=== PATIENT | male | born 1970 | race Caucasian/White ===

== ENCOUNTER → 2016-07-31 | Outpatient (CLI) | payer BC ==
--- NOTE | 2016-08-01 15:26 | SLEEP ---
DATE OF STUDY: 07/31/2016 ATTENDING PHYSICIAN: Dr. Minor Godfrey. The patient is 46 years old who Weighs 325 pounds with the BMI of 44. The patient's Aurora score was 9. Sleep study was performed at [facility]. This was a split night study. During the night study, the patient spent 457 minutes in bed and slept for 381 minutes with a sleep efficiency of 83%. Sleep latency was 12 minutes with a REM latency of 233 minutes. Overall, sleep architecture showed normal stage I and stage II sleep, normal slow wave and normal REM sleep. During the initial diagnostic portion of the study, the patient slept for 132 minutes. During this time, there were 28 obstructive apneas, no mixed or central apneas. There were 142 hypopneas. The patient's apnea hypopnea index was 77 per hour. The patient did not have supine sleep during the diagnostic portion or REM sleep. Review of nocturnal oximetry study revealed a mean oxygen saturation of 98% with the lowest of 81%, 20% of time oxygen saturation remained between 80% and 89%. EKG monitoring revealed average heart rate was 78 beats per minute. No sustained arrhythmias were observed. PACs were seen occasionally. PLMS were seen at an index of 60 per hour and 2 per hour caused EEG arousals. The patient met the criteria for CPAP initiation. It was started at 9 cm water as the patient was unable to tolerate lower pressure. At the final pressure of 14 cm of water. The patient spent 128 minutes. The patient had supine as well as the lateral REM sleep. The patient's AHI was only 1 per hour. Oxygen saturation remained about 91%. The patient used a medium size full face mask. IMPRESSION: 1. Severe sleep apnea-hypopnea syndrome at an AHI of 77 per hour. 2. Nocturnal hypoxia secondary to obstructive sleep apnea, but resolved with CPAP. 3. Severe PLMS at an index of 60 per hour and 2 per hour caused EEG arousals. RECOMMENDATIONS: 1. CPAP at 14 cm of water completely eliminated the patient's sleep apnea and should be used on a nightly basis. 2. Follow up in 4-6 weeks to assess compliance with CPAP and to document clinical improvement. 3. Weight loss is strongly advised. 4. Avoid MASTER [employer]OR[employer]CLE TECH[employer]ICIAN depressants. 5. Caution regarding driving until symptoms of sleep apnea resolve with the use of CPAP. 6. PLMS can be treated with dopaminergic agonist agents if patient is clinically symptomatic. The patient should also be further evaluated for symptoms of restless legs during the day. ИРИНА VAIL MD DR: NERY/abbi JOB#: [id number] / [id number] MINOR Linton MD
== END | disposition home or self-care (01) ==
LOC: RT 18:16
PROVIDERS: ATTEND Family Medicine
DX: G47.33 Obstructive sleep apnea (adult) (pediatric) (principal)
CPT/HCPCS: 95810

== ENCOUNTER → 2016-09-11 | Outpatient (CLI) | payer BC ==
--- NOTE | 2016-09-11 19:15 | CARD ---
APPROVED REPORT EXAM: Two-dimensional and M-mode echocardiogram with Doppler and color Doppler. Other Information Quality : Average Rhythm : NSR INDICATION Dyspnea Peripheral Edema 2D DIMENSIONS RVDd3.6 (2.9-3.5cm)Left Atrium(2D)3.7 (1.6-4.0cm) IVSd1.1 (0.7-1.1cm)Aortic Root(2D)3.1 (2.0-3.7cm) LVDd6.1 (3.9-5.9cm)LVOT Diameter2.1 (1.8-2.4cm) PWd1.1 (0.7-1.1cm)LVDs3.6 (2.5-4.0cm) FS (%) 31.1 %SV132.8 ml LVEF(%)61.0 (>50%) Aortic Valve AoV Peak Zan.108.4cm/sAoV VTI21.8cm AO Peak GR.4.7mmHgLVOT Peak Zan.98.2cm/s LVOT VTI 21.96cmAO Mean GR.2mmHg JOHN (VMAX)3.81un8CGR (VTI)3.45cm2 Mitral Valve MV E Riufwkrs44.8cm/sMV DECEL NALA401hs MV A Viwfytxq43.0cm/sMV E Mean Gr.2mmHg MV NNS12syZ/A Ratio1.1 MV A Pbokkfsp669jfLNH (PHT)2.88cm2 TDI E/Lateral E'8.3E/Medial E'7.7 Pulmonary Valve PV Peak Estsjpbk826.1cm/sPV Peak Grad.5mmHg RVOT VTI17.4cm Tricuspid Valve TR P. Wxrplbjg740lg/sRAP WXBIOBZU7kdOi TR Peak Gr.26vxAqLQCG94cpMr LEFT VENTRICLE The Left Ventricle is borderline dilated. There is normal left ventricular wall thickness. Left ventr icle systolic function is normal. The Ejection Fraction is 61%. There is normal LV segmental wall mot ion. The left ventricular diastolic function and filling is normal for age. RIGHT VENTRICLE The right ventricle is normal size. The right ventricular systolic function is normal. ATRIA The left atrium size is normal. The right atrium size is normal. The interatrial septum is intact wit h no evidence for an atrial septal defect or patent foramen ovale as noted on 2-D or Doppler imaging. AORTIC VALVE The aortic valve is normal in structure and function. The aortic valve is trileaflet. Doppler and Col or Flow revealed no significant aortic regurgitation. There is no significant aortic valvular stenosi s. MITRAL VALVE The mitral valve is normal in structure There is no mitral valve stenosis. Doppler and Color Flow rev ealed trace to mild mitral regurgitation. TRICUSPID VALVE The tricuspid valve is normal in structure and function. Doppler and Color Flow revealed trace tricus pid regurgitation. The PA pressure was estimated at 14 mmHg. There is no tricuspid valve stenosis. PULMONIC VALVE The pulmonic valve is not well visualized. Doppler and Color Flow revealed no pulmonic valvular regur gitation. There is no pulmonic valvular stenosis. GREAT VESSELS The aortic root is normal in size. Pulmonary vein flow not well visualized. The IVC is normal in size and collapses >50% with inspiration. PERICARDIAL EFFUSION There is no evidence of significant pericardial effusion. Critical Notification Critical Value: No <Conclusion> The Left Ventricle is borderline dilated. Left ventricle systolic function is normal. The Ejection Fraction is 61%. The left atrium size is normal. The right atrium size is normal. The aortic valve is normal in structure and function. The aortic valve is trileaflet. Doppler and Color Flow revealed trace to mild mitral regurgitation. Doppler and Color Flow revealed trace tricuspid regurgitation. The PA pressure was estimated at 14 mmHg. The pulmonic valve is not well visualized. There is no evidence of significant pericardial effusion.
== END | disposition home or self-care (01) ==
LOC: ECHO 09:50
PROVIDERS: ATTEND Internal Medicine Cardiovascular Disease
DX: I08.1 Rheumatic disorders of both mitral and tricuspid valves (principal); R06.00 Dyspnea, unspecified; R60.0 Localized edema; R53.81 Other malaise; R53.83 Other fatigue
CPT/HCPCS: 93306

== ENCOUNTER → 2018-10-20 | Outpatient (CLI) | payer BC ==
[~2018-10-20] MED LIST: AMLO10TA8 PO; ASPI-630 PO; ATOR40TA59 PO; INSU200I4 SQ; Pantoprazole PO; SOTA80TA20 PO
--- NOTE | 2018-10-21 09:46 | CARD ---
MR#: [id number] Date of Study: 10/20/2018 Ordering Physician: ARACELI STERN, Referring Physician: ARACELI STERN, Tech: Mitali Mejia CATHY APPROVED REPORT EXAM: Two-dimensional and M-mode echocardiogram with Doppler and color Doppler. Other Information Quality : AverageHR: 72bpm Rhythm : NSR INDICATION Atrial Fibrillation 2D DIMENSIONS RVDd3.5 (2.9-3.5cm)Left Atrium(2D)4.0 (1.6-4.0cm) IVSd1.3 (0.7-1.1cm)Aortic Root(2D)3.3 (2.0-3.7cm) LVDd6.0 (3.9-5.9cm)LVOT Diameter2.3 (1.8-2.4cm) PWd1.0 (0.7-1.1cm)LVDs4.2 (2.5-4.0cm) FS (%) 29.3 %SV98.6 ml LVEF(%)55.3 (>50%) M-Mode DIMENSIONS Left Atrium(MM)3.71 (2.5-4.0cm)Aortic Root3.41 (2.2-3.7cm) Aortic Valve AoV Peak Zan.152.8cm/sAoV VTI33.4cm AO Peak GR.9.3mmHgLVOT Peak Zan.119.8cm/s AO Mean GR.5mmHgAVA (VMAX)3.31cm2 JOHN (VTI)3.30cm2 Mitral Valve MV E Ftexqukr77.2cm/sMV DECEL SAEW067tv MV A Tivwydzi04.9cm/sE/A Ratio1.0 Pulmonary Valve PV Peak Rwlztieu048.3cm/s Tricuspid Valve TR P. Gnxtcilu737id/sRAP PCLAIHUK1voMd TR Peak Gr.37bcDuAJPZ95qnVj Pulmonary Vein S1 Jumjlxzh06.9cm/sD2 Rnlbxyyf11.1cm/s PVa ztppvjme93kxlv LEFT VENTRICLE The Left Ventricle is borderline dilated. There is normal left ventricular wall thickness. The left v entricular systolic function is normal and the ejection fraction is within normal range. The Ejection Fraction is 55-60%. There is normal LV segmental wall motion. Transmitral Doppler flow pattern is Gr katelin I-abnormal relaxation pattern. RIGHT VENTRICLE The right ventricle is normal size. There is normal right ventricular wall thickness. The right ventr icular systolic function is normal. ATRIA The left atrium is borderline dilated. The right atrium size is normal. The atrial septum is aneurysm al. AORTIC VALVE The aortic valve is normal in structure and function. The aortic valve is trileaflet. Doppler and Col or Flow revealed no significant aortic regurgitation. There is no significant aortic valvular stenosi s. There is no aortic valvular vegetation. MITRAL VALVE The mitral valve is normal in structure and function. There is no evidence of mitral valve prolapse. There is no mitral valve stenosis. Doppler and Color-flow revealed trace mitral regurgitation. TRICUSPID VALVE The tricuspid valve is normal in structure and function. Doppler and Color Flow revealed trace tricus pid regurgitation. The PA pressure was estimated at 25 mmHg. There is no tricuspid valve prolapse or vegetation. There is no tricuspid valve stenosis. PULMONIC VALVE The pulmonic valve is not well visualized. GREAT VESSELS The aortic root is normal in size. The ascending aorta is normal in size. The IVC is normal in size a nd collapses >50% with inspiration. PERICARDIAL EFFUSION There is no evidence of significant pericardial effusion. Critical Notification Critical Value: No <Conclusion> The Left Ventricle is borderline dilated. The left ventricular systolic function is normal and the ejection fraction is within normal range. The Ejection Fraction is 55-60%. There is no significant aortic valvular stenosis. Doppler and Color Flow revealed no significant aortic regurgitation. Doppler and Color-flow revealed trace mitral regurgitation. Doppler and Color Flow revealed trace tricuspid regurgitation. The PA pressure was estimated at 25 mmHg. Signed by : Darinel Ochoa MD Electronically Approved : 10/20/2018 17:04:00
== END | disposition home or self-care (01) ==
LOC: ECHO 13:51
PROVIDERS: ATTEND Internal Medicine Cardiovascular Disease
DX: I48.0 Paroxysmal atrial fibrillation (principal)
CPT/HCPCS: 93306

== ENCOUNTER 2018-11-07 19:00 | Inpatient (IN) | payer BC ==
[~2018-11-07] VITALS: Ht 182.9 cm; Wt 137.7 kg
[2018-11-07 19:44] LABS: BASO # 0.1 x10^3/uL (0.0-0.2); BASO % 1 % (0-3); EOS # 0.2 x10^3/uL (0.0-0.7); EOS % 3 % (0-3); HEMATOCRIT 37.9 % (39.0-53.0); HEMOGLOBIN 13.3 g/dL (13.0-17.5); LYMPH # 1.9 x10^3/uL (1.0-4.8); LYMPH % 27 % (24-48); MEAN CORPUSCULAR HEMOGLOBIN 31 pg (25-35); MEAN CORPUSCULAR HGB CONC 35 g/dL (31-37); MEAN CORPUSCULAR VOLUME 87 fL (79-100); MONO # 0.8 x10^3/uL (0.0-1.1); MONO % 12 % (0-9); NEUT # 4.2 x10^3uL (1.8-7.7); NEUT % 59 % (31-73); PLATELET COUNT 204 x10^3/uL (140-400); RED BLOOD COUNT 4.36 x10^6/uL (4.30-5.70); RED CELL DISTRIBUTION WIDTH 13.5 % (11.5-14.5); WHITE BLOOD COUNT 7.1 x10^3/uL (4.0-11.0)
[2018-11-07 19:59] LABS: CALCIUM 9.5 mg/dL (8.5-10.1); CREATININE 2.5 mg/dL (0.7-1.3); GFR 27.5; POTASSIUM 3.5 mmol/L (3.5-5.1)
[2018-11-07] MEDS ORDERED: IV NORMAL SALINE 1000ML BAG 1,000 ML IV ONE (20:00)
[2018-11-07 20:05] LABS: ALBUMIN 4.5 g/dL (3.4-5.0); ALBUMIN/GLOBULIN RATIO 1.5 (1.0-1.7); TOTAL BILIRUBIN 1.1 mg/dL (0.2-1.0); TOTAL PROTEIN 7.6 g/dL (6.4-8.2)
--- NOTE | 2018-11-07 20:10 | PHYS DOC ---
Past Medical History Past Medical History: A-Fib, Diabetes-Type II, GERD, Hypertension Past Surgical History: Other Additional Past Surgical Histo: Cardioversion Additional Information: non smoker Alcohol Use: Rarely Drug Use: None Adult General Chief Complaint Chief Complaint: ABNORMAL LABS HPI HPI Patient is a 48 year old male who was called by his doctor to come to the ER because of abnormal labs. The patient states that he has been recently getting a workup from Dr. Degroot, the machine fixer who ran labs and then got a call from [facility] and Dr. Deluna due to possible abnormal labs relating to her renal issues. Patient is originally getting a workup because he has been feeling short of breath, bloated, loss of appetite over the last several weeks. He started new diet 3 weeks ago and after the first couple days has not noted the diet due to the loss of appetite. Rates his pain at this moment as 0 out of 10. Review of Systems Review of Systems Constitutional: Denies fever or chills but reports loss of appetite. Eyes: Denies change in visual acuity, redness, or eye pain [] HENT: Denies nasal congestion or sore throat [] Respiratory: Denies cough but reports shortness of breath [] Cardiovascular: Reports some midsternal chest pressure. GI: Denies abdominal pain, nausea, vomiting, bloody stools or diarrhea [] : Denies dysuria or hematuria [] Musculoskeletal: Denies back pain or joint pain [] Integument: Denies rash or skin lesions [] Neurologic: Denies headache, focal weakness or sensory changes [] Endocrine: Denies polyuria or polydipsia [] Complete systems were reviewed and found to be within normal limits, except as documented in this note. Current Medications Current Medications Current Medications Medications (Trade) Dose Ordered Sig/Magdy Start Time Stop Time Status Last Admin Dose Admin Sodium Chloride 1,000 ml @ 100 mls/hr Q10H 11/07/18 21:04 11/08/18 21:03 11/07/18 23:29 100 MLS/HR Allergies Allergies Allergies Coded Allergies Type Severity Reaction Last Updated Verified amoxicillin Allergy Intermediate Rash 11/07/18 No Physical Exam Physical Exam Constitutional: Well developed, well nourished, no acute distress, non-toxic appearance. [] HENT: Normocephalic, atraumatic, bilateral external ears normal, oropharynx moist, no oral exudates, nose normal. [] Eyes: PERRLA, EOMI, conjunctiva normal, no discharge. [] Neck: Normal range of motion, no tenderness, supple, no stridor. [] Cardiovascular:Heart rate regular rhythm, no murmur [] Lungs & Thorax: Bilateral breath sounds clear to auscultation [] Abdomen: Bowel sounds normal, soft, no tenderness, no masses, no pulsatile masses. [] Skin: Warm, dry, no erythema, no rash. [] Back: No tenderness, no CVA tenderness. [] Extremities: No tenderness, no cyanosis, no clubbing, ROM intact, no edema. [] Neurologic: Alert and oriented X 3, normal motor function, normal sensory function, no focal deficits noted. [] Psychologic: Affect normal, judgement normal, mood normal. [] Current Patient Data Vital Signs Vital Signs Date Time Temp Pulse Resp B/P (MAP) Pulse Ox O2 Delivery O2 Flow Rate FiO2 11/07/18 19:00 97.8 55 18 127/79 (95) 97 Room Air 97.8 Lab Values Laboratory Tests Test 11/07/18 19:22 White Blood Count 7.1 x10^3/uL (4.0-11.0) Red Blood Count 4.36 x10^6/uL (4.30-5.70) Hemoglobin 13.3 g/dL (13.0-17.5) Hematocrit 37.9 % (39.0-53.0) L Mean Corpuscular Volume 87 fL (79-100) Mean Corpuscular Hemoglobin 31 pg (25-35) Mean Corpuscular Hemoglobin Concent 35 g/dL (31-37) Red Cell Distribution Width 13.5 % (11.5-14.5) Platelet Count 204 x10^3/uL (140-400) Neutrophils (%) (Auto) 59 % (31-73) Lymphocytes (%) (Auto) 27 % (24-48) Monocytes (%) (Auto) 12 % (0-9) H Eosinophils (%) (Auto) 3 % (0-3) Basophils (%) (Auto) 1 % (0-3) Neutrophils # (Auto) 4.2 x10^3uL (1.8-7.7) Lymphocytes # (Auto) 1.9 x10^3/uL (1.0-4.8) Monocytes # (Auto) 0.8 x10^3/uL (0.0-1.1) Eosinophils # (Auto) 0.2 x10^3/uL (0.0-0.7) Basophils # (Auto) 0.1 x10^3/uL (0.0-0.2) Sodium Level 144 mmol/L (136-145) Potassium Level 3.5 mmol/L (3.5-5.1) Chloride Level 104 mmol/L (98-107) Carbon Dioxide Level 27 mmol/L (21-32) Anion Gap 13 (6-14) Blood Urea Nitrogen 47 mg/dL (8-26) H Creatinine 2.5 mg/dL (0.7-1.3) H Estimated GFR (Cockcroft-Gault) 27.5 BUN/Creatinine Ratio 19 (6-20) Glucose Level 118 mg/dL (70-99) H Calcium Level 9.5 mg/dL (8.5-10.1) Total Bilirubin 1.1 mg/dL (0.2-1.0) H Aspartate Amino Transferase (AST) 23 U/L (15-37) Alanine Aminotransferase (ALT) 28 U/L (16-63) Alkaline Phosphatase 94 U/L (46-116) Troponin I Quantitative < 0.017 ng/mL (0.000-0.055) KU-Obx-F-Type Natriuretic Peptide 124 pg/mL (0-124) Total Protein 7.6 g/dL (6.4-8.2) Albumin 4.5 g/dL (3.4-5.0) Albumin/Globulin Ratio 1.5 (1.0-1.7) Lipase 355 U/L (73-393) Laboratory Tests 11/07/18 19:22 Laboratory Tests 11/07/18 19:22 EKG EKG EKG interpreted by Dr. Rothman Sinus Rhythm with rate of 74. In Trigeminy. No STEMI.[] Radiology/Procedures Radiology/Procedures []PATIENT: MARÍA STINSONOUNT: [id number]#: [id number] : 1970 LOCATION: ER AGE: 48 SEX: M EXAM STATUS: PRE ER ORD. PHYSICIAN: YEMI AMADOR APRN REASON: shortness of breath, renal failure PROCEDURE: CHEST PA & LATERAL EXAM: Chest, 2 views. HISTORY: Shortness of breath. Renal failure. COMPARISON: None. FINDINGS: 2 views of the chest are obtained. There is suspected right infrahilar atelectasis. There is no consolidation, pleural effusion or pneumothorax. The heart is normal in size. IMPRESSION: Suspected right infrahilar atelectasis. Electronically signed by: Sasha Alexis MD (11/07/2018 8:29 PM) [facility] Course & Med Decision Making Course & Med Decision Making Pertinent Labs and Imaging studies reviewed. (See chart for details) Will obtain labs, urine, ekg, and chest x-ray. Will also give fluids. Patient is agreeable. Labs show a creatinine of 2.5 and he is in СВЕТЛАНА. Will admit to [facility] and talked to Dr. Deluna who wants him at 100 mL/hr of NS. Dragon Disclaimer Dragon Disclaimer This electronic medical record was generated, in whole or in part, using a voice recognition dictation system. Departure Departure Impression: Primary Impression: СВЕТЛАНА (acute kidney injury) Disposition: ADMITTED INPATIENT Admitting Physician: AMANDO Condition: STABLE Referrals: MARTITA BAR MD (PCP) YEMI AMADOR APRN Nov 07, 2018 20:10
--- NOTE | 2018-11-07 20:32 | RAD ---
EXAM: Chest, 2 views. HISTORY: Shortness of breath. Renal failure. COMPARISON: None. FINDINGS: 2 views of the chest are obtained. There is suspected right infrahilar atelectasis. There is no consolidation, pleural effusion or pneumothorax. The heart is normal in size. IMPRESSION: Suspected right infrahilar atelectasis. Electronically signed by: Sasha Alexis MD (11/07/2018 8:29 PM) [facility]
[2018-11-07] MEDS ORDERED: MORPHINE SULFATE 2 MG/ML VIAL. IV PRN (21:15)
[2018-11-07] MEDS ORDERED: ONDANSETRON PF 4 MG/2 ML VIAL. IV PRN (21:15)
[2018-11-07 22:33] LABS: BILIRUBIN,URINE NEGATIVE (NEG); CLARITY,URINE CLEAR; COLOR,URINE YELLOW; NITRITE,URINE NEGATIVE (NEG); PH,URINE 5.5; PROTEIN,URINE NEGATIVE (NEG-TRACE)
[2018-11-07 22:42] LABS: BACTERIA,URINE 0 /HPF (0-FEW); RBC,URINE 0 /HPF (0-2); WBC,URINE 0 /HPF (0-4)
[2018-11-07 23:16] VITALS: BP 141/79
[2018-11-07] MEDS: IV NORMAL SALINE 1000ML BAG 1,000 ML IV SCH (23:29)
[2018-11-08] MEDS ORDERED: ONDANSETRON PF 4 MG/2 ML VIAL. IV PRN (00:45)
[2018-11-08] MEDS ORDERED: diphenhydrAMINE HCL 25 MG CAPSULE PO PRN (00:45)
--- NOTE | 2018-11-08 00:50 | NUR ---
The patient, MARÍA STINSON, 48 y/o, M admitted by JCARLOS FALL MD, was given written information regarding hospital policies, unit procedures and contact persons. Pt unable to provide updated medication list at admission time- Jagruti will bring in AM 6/8 per pt and .
[2018-11-08 03:32] VITALS: BP_SYST 123
[2018-11-08] MEDS ORDERED: DEXTROSE 50% 25 GM / 50ML DISP.SYRIN. IV PRN ×2 (06:45→09:00)
[2018-11-08] MEDS: IV NORMAL SALINE 1000ML BAG 1,000 ML IV SCH ×2 (07:04→17:04)
[2018-11-08 07:52] VITALS: BP 127/65
[2018-11-08] MEDS ORDERED: LOSARTAN POTASSIUM 50 MG TABLET. PO SCH (09:00)
[2018-11-08] MEDS ORDERED: MULTIVITAMIN with MINERAL TABLET. PO SCH (09:00)
[2018-11-08] MEDS ORDERED: metFORMIN 500 MG TABLET PO SCH (09:00)
[2018-11-08] MEDS: CETIRIZINE HCL 10 MG TABLET. PO SCH (10:19)
[2018-11-08] MEDS: amLODIPine BESYLATE 10 MG TABLET PO SCH (10:19)
[2018-11-08] MEDS: PANTOPRAZOLE 40 MG TABLET.DR. PO SCH (10:20)
[2018-11-08] MEDS: ASPIRIN CHEWABLE 81 MG TABLET. PO SCH (10:20)
[2018-11-08] MEDS: SOTALOL 80 MG TABLET. PO SCH (10:22)
[2018-11-08 11:00] VITALS: BP 152/89
[2018-11-08 11:18] LABS: CALCIUM 8.9 mg/dL (8.5-10.1); CREATININE 1.7 mg/dL (0.7-1.3); GFR 42.9; POTASSIUM 3.4 mmol/L (3.5-5.1)
[2018-11-08] MEDS: INSULIN LISPRO 300 UNITS/3 ML INSULN.PEN. SQ SCH ×2 (12:00→17:00)
--- NOTE | 2018-11-08 13:10 | PDOC1 ---
History and Physical Date of Admission Date of Admission DATE: 11/08/18 TIME: 13:06 Identification/Chief Complaint Chief Complaint sent by renal bec of abn labs Source Source: Caregiver, Chart review, Patient History of Present Illness History of Present Illness A pleasant 48-year-old obese white male BMI 42, being worked up by Dr. Degroot for A. fib, bigeminy, trigeminy and is actually planned for ablation sometime next week. Basic labs showed a creatinine that was 3+ per , referred to renal. Renal has seen as OP and ordered some labs and advised to come to the ER because of abnormal labs At Emergency room, creatinine is 2.5 with a GFR 27.5. Patient does have history of hypertension, diabetes but are rather controlled with an A1c 6.6. He is on metformin and ARB at home. He did take maybe Celebrex for good 1 month, some 2 months ago for plantar fasciitis. Renal consulted, IV fluids started. Good urine output, PVR is minimal Past Medical History Cardiovascular: AFIB, HTN Endocrine: Diabetes Past Surgical History Past Surgical History: No pertinent history Family History Family History: Hypertension Social History Smoke: No ALCOHOL: none Drugs: None Current Medications Current Medications Current Medications Sodium Chloride 1,000 ml @ 1,000 mls/hr 1X ONCE IV Last administered on 11/07/18at 20:05; Start 11/07/18 at 20:00; Stop 11/07/18 at 20:59; Status DC Ondansetron HCl (Zofran) 4 mg PRN Q8HRS PRN IV NAUSEA/VOMITING; Start 11/07/18 at 21:15; Stop 11/08/18 at 00:41; Status DC Morphine Sulfate (Morphine Sulfate) 2 mg PRN Q2HR PRN IV PAIN; Start 11/07/18 at 21:15; Stop 11/08/18 at 21:14 Sodium Chloride 1,000 ml @ 100 mls/hr Q10H IV Last administered on 11/08/18at 07:04; Start 11/07/18 at 21:04; Stop 11/08/18 at 21:03 Ondansetron HCl (Zofran) 4 mg PRN Q6HRS PRN IV NAUSEA/VOMITING 1ST CHOICE; Start 11/08/18 at 00:45 Diphenhydramine HCl (Benadryl) 25 mg PRN QHS PRN PO INSOMNIA; Start 11/08/18 at 00:45 Dextrose (Dextrose 50%-Water Syringe) 12.5 gm PRN Q15MIN PRN IV SEE COMMENTS; Start 11/08/18 at 06:45; Stop 11/08/18 at 09:46; Status DC Metformin HCl (Glucophage) 500 mg DAILY08 PO ; Start 11/08/18 at 09:00; Stop 11/08/18 at 09:00; Status DC Amlodipine Besylate (Norvasc) 10 mg DAILY PO Last administered on 11/08/18at 10:19; Start 11/08/18 at 09:00 Sotalol HCl (Betapace) 120 mg DAILY PO Last administered on 11/08/18at 10:22; Start 11/08/18 at 09:00 Losartan Potassium (Cozaar) 100 mg DAILY PO ; Start 11/08/18 at 09:00; Stop 11/08/18 at 09:00; Status DC Atorvastatin Calcium (Lipitor) 40 mg QHS PO ; Start 11/08/18 at 21:00 Multivitamins (Thera M Plus) 1 tab DAILY PO Last administered on 11/08/18 10:19; Start 11/08/18 at 09:00 Aspirin (Children'S Aspirin) 81 mg DAILYWBKFT PO Last administered on 11/08/18 10:20; Start 11/08/18 at 09:00 Insulin Human Lispro (HumaLOG) 0-9 UNITS TIDWMEALS SQ ; Start 11/08/18 at 12:00 Dextrose (Dextrose 50%-Water Syringe) 12.5 gm PRN Q15MIN PRN IV SEE COMMENTS; Start 11/08/18 at 09:00 Pantoprazole Sodium (Protonix) 40 mg DAILYAC PO Last administered on 11/08/18 10:20; Start 11/08/18 at 11:00 Cetirizine HCl (ZyrTEC) 10 mg DAILY PO Last administered on 11/08/18 10:19; Start 11/08/18 at 11:00 Allergies Allergies: Coded Allergies: amoxicillin (Unverified Allergy, Intermediate, Rash, 11/07/18) ROS Review of System Nausea fatigue, malaise, the rest of ROS 14 point negative, positive for bloatedness Physical Exam General: Alert, Oriented X3, Cooperative, No acute distress HEENT: Atraumatic, PERRLA, EOMI Lungs: Clear to auscultation, Normal air movement Heart: S1S2, RRR, no thrills, no rubs, no gallops, no murmurs Cardiovascular: S1, S2 Abdomen: Normal bowel sounds, Soft, No tenderness, No hepatosplenomegaly, No masses Male Genitals Exam: normal genitalia, normal prostate Rectal Exam: not examined PELVIC: Nml ext genitalia Extremities: No clubbing, No cyanosis, No edema, Normal pulses, No tenderness/swelling Skin: No rashes, No breakdown, No significant lesion Neuro: Normal gait, Normal speech, Strength at 5/5 X4 ext, Normal tone, Sensation intact, Cranial nerves 3-12 NL, Reflexes 2+ Psych/Mental Status: Mental status NL, Mood NL Vitals Vitals Vital Signs Date Time Temp Pulse Resp B/P (MAP) Pulse Ox O2 Delivery O2 Flow Rate FiO2 11/08/18 11:00 97.3 54 20 152/89 (110) 97 Room Air 97.3 Labs Labs Laboratory Tests Test 11/07/18 19:22 11/07/18 22:25 11/08/18 07:37 11/08/18 10:50 White Blood Count 7.1 x10^3/uL (4.0-11.0) Red Blood Count 4.36 x10^6/uL (4.30-5.70) Hemoglobin 13.3 g/dL (13.0-17.5) Hematocrit 37.9 % (39.0-53.0) Mean Corpuscular Volume 87 fL (79-100) Mean Corpuscular Hemoglobin 31 pg (25-35) Mean Corpuscular Hemoglobin Concent 35 g/dL (31-37) Red Cell Distribution Width 13.5 % (11.5-14.5) Platelet Count 204 x10^3/uL (140-400) Neutrophils (%) (Auto) 59 % (31-73) Lymphocytes (%) (Auto) 27 % (24-48) Monocytes (%) (Auto) 12 % (0-9) Eosinophils (%) (Auto) 3 % (0-3) Basophils (%) (Auto) 1 % (0-3) Neutrophils # (Auto) 4.2 x10^3uL (1.8-7.7) Lymphocytes # (Auto) 1.9 x10^3/uL (1.0-4.8) Monocytes # (Auto) 0.8 x10^3/uL (0.0-1.1) Eosinophils # (Auto) 0.2 x10^3/uL (0.0-0.7) Basophils # (Auto) 0.1 x10^3/uL (0.0-0.2) Sodium Level 144 mmol/L (136-145) 143 mmol/L (136-145) Potassium Level 3.5 mmol/L (3.5-5.1) 3.4 mmol/L (3.5-5.1) Chloride Level 104 mmol/L (98-107) 106 mmol/L (98-107) Carbon Dioxide Level 27 mmol/L (21-32) 27 mmol/L (21-32) Anion Gap 13 (6-14) 10 (6-14) Blood Urea Nitrogen 47 mg/dL (8-26) 34 mg/dL (8-26) Creatinine 2.5 mg/dL (0.7-1.3) 1.7 mg/dL (0.7-1.3) Estimated GFR (Cockcroft-Gault) 27.5 42.9 BUN/Creatinine Ratio 19 (6-20) Glucose Level 118 mg/dL (70-99) 150 mg/dL (70-99) Calcium Level 9.5 mg/dL (8.5-10.1) 8.9 mg/dL (8.5-10.1) Total Bilirubin 1.1 mg/dL (0.2-1.0) Aspartate Amino Transf (AST/SGOT) 23 U/L (15-37) Alanine Aminotransferase (ALT/SGPT) 28 U/L (16-63) Alkaline Phosphatase 94 U/L (46-116) Troponin I Quantitative < 0.017 ng/mL (0.000-0.055) EO-Fqi-M-Type Natriuretic Peptide 124 pg/mL (0-124) Total Protein 7.6 g/dL (6.4-8.2) Albumin 4.5 g/dL (3.4-5.0) Albumin/Globulin Ratio 1.5 (1.0-1.7) Lipase 355 U/L (73-393) Urine Collection Type Unknown Urine Color Yellow Urine Clarity Clear Urine pH 5.5 Urine Specific [place] 1.015 Urine Protein Negative mg/dL (NEG-TRACE) Urine Glucose (UA) Negative mg/dL (NEG) Urine Ketones (Stick) Negative mg/dL (NEG) Urine Blood Negative (NEG) Urine Nitrite Negative (NEG) Urine Bilirubin Negative (NEG) Urine Urobilinogen Dipstick 1.0 mg/dL (0.2 mg/dL) Urine Leukocyte Esterase Negative (NEG) Urine RBC 0 /HPF (0-2) Urine WBC 0 /HPF (0-4) Urine Bacteria 0 /HPF (0-FEW) Glucose (Fingerstick) 103 mg/dL (70-99) Test 11/08/18 11:15 Glucose (Fingerstick) 126 mg/dL (70-99) Laboratory Tests Test 11/07/18 19:22 11/07/18 22:25 11/08/18 07:37 11/08/18 10:50 White Blood Count 7.1 x10^3/uL (4.0-11.0) Red Blood Count 4.36 x10^6/uL (4.30-5.70) Hemoglobin 13.3 g/dL (13.0-17.5) Hematocrit 37.9 % (39.0-53.0) Mean Corpuscular Volume 87 fL (79-100) Mean Corpuscular Hemoglobin 31 pg (25-35) Mean Corpuscular Hemoglobin Concent 35 g/dL (31-37) Red Cell Distribution Width 13.5 % (11.5-14.5) Platelet Count 204 x10^3/uL (140-400) Neutrophils (%) (Auto) 59 % (31-73) Lymphocytes (%) (Auto) 27 % (24-48) Monocytes (%) (Auto) 12 % (0-9) Eosinophils (%) (Auto) 3 % (0-3) Basophils (%) (Auto) 1 % (0-3) Neutrophils # (Auto) 4.2 x10^3uL (1.8-7.7) Lymphocytes # (Auto) 1.9 x10^3/uL (1.0-4.8) Monocytes # (Auto) 0.8 x10^3/uL (0.0-1.1) Eosinophils # (Auto) 0.2 x10^3/uL (0.0-0.7) Basophils # (Auto) 0.1 x10^3/uL (0.0-0.2) Sodium Level 144 mmol/L (136-145) 143 mmol/L (136-145) Potassium Level 3.5 mmol/L (3.5-5.1) 3.4 mmol/L (3.5-5.1) Chloride Level 104 mmol/L (98-107) 106 mmol/L (98-107) Carbon Dioxide Level 27 mmol/L (21-32) 27 mmol/L (21-32) Anion Gap 13 (6-14) 10 (6-14) Blood Urea Nitrogen 47 mg/dL (8-26) 34 mg/dL (8-26) Creatinine 2.5 mg/dL (0.7-1.3) 1.7 mg/dL (0.7-1.3) Estimated GFR (Cockcroft-Gault) 27.5 42.9 BUN/Creatinine Ratio 19 (6-20) Glucose Level 118 mg/dL (70-99) 150 mg/dL (70-99) Calcium Level 9.5 mg/dL (8.5-10.1) 8.9 mg/dL (8.5-10.1) Total Bilirubin 1.1 mg/dL (0.2-1.0) Aspartate Amino Transf (AST/SGOT) 23 U/L (15-37) Alanine Aminotransferase (ALT/SGPT) 28 U/L (16-63) Alkaline Phosphatase 94 U/L (46-116) Troponin I Quantitative < 0.017 ng/mL (0.000-0.055) JA-Dmw-T-Type Natriuretic Peptide 124 pg/mL (0-124) Total Protein 7.6 g/dL (6.4-8.2) Albumin 4.5 g/dL (3.4-5.0) Albumin/Globulin Ratio 1.5 (1.0-1.7) Lipase 355 U/L (73-393) Urine Collection Type Unknown Urine Color Yellow Urine Clarity Clear Urine pH 5.5 Urine Specific [place] 1.015 Urine Protein Negative mg/dL (NEG-TRACE) Urine Glucose (UA) Negative mg/dL (NEG) Urine Ketones (Stick) Negative mg/dL (NEG) Urine Blood Negative (NEG) Urine Nitrite Negative (NEG) Urine Bilirubin Negative (NEG) Urine Urobilinogen Dipstick 1.0 mg/dL (0.2 mg/dL) Urine Leukocyte Esterase Negative (NEG) Urine RBC 0 /HPF (0-2) Urine WBC 0 /HPF (0-4) Urine Bacteria 0 /HPF (0-FEW) Glucose (Fingerstick) 103 mg/dL (70-99) Test 11/08/18 11:15 Glucose (Fingerstick) 126 mg/dL (70-99) VTE Prophylaxis Ordered VTE Prophylaxis Devices: Yes VTE Pharmacological Prophylaxi: Yes Assessment/Plan Assessment/Plan СВЕТЛАНА 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 fib/bigemimny, trigeminy-plan for ablation sometime next week PLAN: Admit 2 Midnights, bladder scan protocol Renal ultrasound UA Avoid nephrotoxins Renal consult I have reconciled home meds except metformin and losartan Discussed with and patient, significant time education etc. had lots of questions we discussed about renal failure etc. prognosis treatment very pleasant family JCARLOS FALL MD Nov 08, 2018 13:10
--- NOTE | 2018-11-08 13:11 | PDOC2 ---
CONSULT Date of Consult Date of Consult DATE: 11/08/18 TIME: 13:03 Reason for Consult Reason for Consult: СВЕТЛАНА Referring Physician Referring Physician: JUAN DAVID Identification/Chief Complaint Chief Complaint ABNORMAL LABS Source Source: Chart review, Patient History of Present Illness Reason for Visit: THIS IS A 48 YR OLD WITH ABNORMAL OP LABS. WAS NOTED BY CARDIOLOGY TO HAVE A CR OF 3.5 OP BUT BASELINE CR OF ONLY ABOUT 0.8. OUR OFFICE CONTACTED THE PT WHEN HE REPORTED FEW DAYS OF POOR APPETITE AND OCC N/V. HAD ALSO NOTED DECREASE IN HIS URINATION. WE ASKED HIM TO COME TO THE ER WHERE HIS CR IS ABOUT 2.5. NO NEPHROTOXINS NOTED. NO HEMODYNAMIC INSTABILITY AND NO HX REPORTED. OF NOTE IS A NEW WT LOSS PLAN GIVE TO HIM BY [facility]. HE HAS BEEN FOLLOWING IT AND STATES THAT HE HAS LOST 18 LBS IN ONE WEEK. ALSO REPORTED EARLY SATIETY. JUST HAS NOT FELT LIKE EATING MUCH SINCE STARTING THE DIET RECENTLY. OTHER PROBLEMS HAVE INCLUDED SOB. STRESS TEST PER PT DONE JUST LAST WEEK WAS WNL. HE HAS AFIB AND IS A POTENTIAL CANDIDATE FOR ABLATION Past Medical History Past Medical History OBESITY Cardiovascular: AFIB, HTN GI: No pertinent hx, Constipation Renal/: Other (LESS UO) Endocrine: Diabetes Past Surgical History Past Surgical History NONE Family History Family History: Diabetes Social History No ALCOHOL: none Lives: with Family Current Medications Current Medications Current Medications Sodium Chloride 1,000 ml @ 1,000 mls/hr 1X ONCE IV Last administered on 11/07/18at 20:05; Start 11/07/18 at 20:00; Stop 11/07/18 at 20:59; Status DC Ondansetron HCl (Zofran) 4 mg PRN Q8HRS PRN IV NAUSEA/VOMITING; Start 11/07/18 at 21:15; Stop 11/08/18 at 00:41; Status DC Morphine Sulfate (Morphine Sulfate) 2 mg PRN Q2HR PRN IV PAIN; Start 11/07/18 at 21:15; Stop 11/08/18 at 21:14 Sodium Chloride 1,000 ml @ 100 mls/hr Q10H IV Last administered on 11/08/18at 07:04; Start 11/07/18 at 21:04; Stop 11/08/18 at 21:03 Ondansetron HCl (Zofran) 4 mg PRN Q6HRS PRN IV NAUSEA/VOMITING 1ST CHOICE; Start 11/08/18 at 00:45 Diphenhydramine HCl (Benadryl) 25 mg PRN QHS PRN PO INSOMNIA; Start 11/08/18 at 00:45 Dextrose (Dextrose 50%-Water Syringe) 12.5 gm PRN Q15MIN PRN IV SEE COMMENTS; Start 11/08/18 at 06:45; Stop 11/08/18 at 09:46; Status DC Metformin HCl (Glucophage) 500 mg DAILY08 PO ; Start 11/08/18 at 09:00; Stop 11/08/18 at 09:00; Status DC Amlodipine Besylate (Norvasc) 10 mg DAILY PO Last administered on 11/08/18at 10:19; Start 11/08/18 at 09:00 Sotalol HCl (Betapace) 120 mg DAILY PO Last administered on 11/08/18at 10:22; Start 11/08/18 at 09:00 Losartan Potassium (Cozaar) 100 mg DAILY PO ; Start 11/08/18 at 09:00; Stop 11/08/18 at 09:00; Status DC Atorvastatin Calcium (Lipitor) 40 mg QHS PO ; Start 11/08/18 at 21:00 Multivitamins (Thera M Plus) 1 tab DAILY PO Last administered on 11/08/18at 10:19; Start 11/08/18 at 09:00 Aspirin (Children'S Aspirin) 81 mg DAILYWBKFT PO Last administered on 11/08/18at 10:20; Start 11/08/18 at 09:00 Insulin Human Lispro (HumaLOG) 0-9 UNITS TIDWMEALS SQ ; Start 11/08/18 at 12:00 Dextrose (Dextrose 50%-Water Syringe) 12.5 gm PRN Q15MIN PRN IV SEE COMMENTS; Start 11/08/18 at 09:00 Pantoprazole Sodium (Protonix) 40 mg DAILYAC PO Last administered on 11/08/18at 10:20; Start 11/08/18 at 11:00 Cetirizine HCl (ZyrTEC) 10 mg DAILY PO Last administered on 11/08/18at 10:19; Start 11/08/18 at 11:00 Allergies Allergies: Coded Allergies: amoxicillin (Unverified Allergy, Intermediate, Rash, 11/07/18) ROS General: YES: Fatigue, Malaise Eyes: Yes Decreased vision ALLERGY AND IMMUNOLOGY: YES: Seasonal Allergies Respiratory: YES: Cough, Shortness of breath Cardiovascular: yes Chest Pain Gastrointestinal: Yes Nausea, Yes Vomiting, Yes Constipation Genitourinary: YES Other Musculoskeletal: Yes Muscular Weakness Neurological: Yes Weakness Skin: Yes Dry Skin Physical Exam General: Alert, Oriented X3, Cooperative, No acute distress HEENT: Atraumatic, PERRLA, EOMI Lungs: Clear to auscultation, Normal air movement Heart: Other (IRREGULAR) Abdomen: Normal bowel sounds, Soft Skin: No breakdown Neuro: Normal speech, Sensation intact Psych/Mental Status: Mental status NL, Mood NL MUSCULOSKELETAL: No joint tenderness, No deformity, No swelling Vitals VITALS Vital Signs Date Time Temp Pulse Resp B/P (MAP) Pulse Ox O2 Delivery O2 Flow Rate FiO2 11/08/18 11:00 97.3 54 20 152/89 (110) 97 Room Air 97.3 Labs Labs Laboratory Tests Test 11/07/18 19:22 11/07/18 22:25 11/08/18 07:37 11/08/18 10:50 White Blood Count 7.1 x10^3/uL (4.0-11.0) Red Blood Count 4.36 x10^6/uL (4.30-5.70) Hemoglobin 13.3 g/dL (13.0-17.5) Hematocrit 37.9 % (39.0-53.0) Mean Corpuscular Volume 87 fL (79-100) Mean Corpuscular Hemoglobin 31 pg (25-35) Mean Corpuscular Hemoglobin Concent 35 g/dL (31-37) Red Cell Distribution Width 13.5 % (11.5-14.5) Platelet Count 204 x10^3/uL (140-400) Neutrophils (%) (Auto) 59 % (31-73) Lymphocytes (%) (Auto) 27 % (24-48) Monocytes (%) (Auto) 12 % (0-9) Eosinophils (%) (Auto) 3 % (0-3) Basophils (%) (Auto) 1 % (0-3) Neutrophils # (Auto) 4.2 x10^3uL (1.8-7.7) Lymphocytes # (Auto) 1.9 x10^3/uL (1.0-4.8) Monocytes # (Auto) 0.8 x10^3/uL (0.0-1.1) Eosinophils # (Auto) 0.2 x10^3/uL (0.0-0.7) Basophils # (Auto) 0.1 x10^3/uL (0.0-0.2) Sodium Level 144 mmol/L (136-145) 143 mmol/L (136-145) Potassium Level 3.5 mmol/L (3.5-5.1) 3.4 mmol/L (3.5-5.1) Chloride Level 104 mmol/L (98-107) 106 mmol/L (98-107) Carbon Dioxide Level 27 mmol/L (21-32) 27 mmol/L (21-32) Anion Gap 13 (6-14) 10 (6-14) Blood Urea Nitrogen 47 mg/dL (8-26) 34 mg/dL (8-26) Creatinine 2.5 mg/dL (0.7-1.3) 1.7 mg/dL (0.7-1.3) Estimated GFR (Cockcroft-Gault) 27.5 42.9 BUN/Creatinine Ratio 19 (6-20) Glucose Level 118 mg/dL (70-99) 150 mg/dL (70-99) Calcium Level 9.5 mg/dL (8.5-10.1) 8.9 mg/dL (8.5-10.1) Total Bilirubin 1.1 mg/dL (0.2-1.0) Aspartate Amino Transf (AST/SGOT) 23 U/L (15-37) Alanine Aminotransferase (ALT/SGPT) 28 U/L (16-63) Alkaline Phosphatase 94 U/L (46-116) Troponin I Quantitative < 0.017 ng/mL (0.000-0.055) WU-Mkz-C-Type Natriuretic Peptide 124 pg/mL (0-124) Total Protein 7.6 g/dL (6.4-8.2) Albumin 4.5 g/dL (3.4-5.0) Albumin/Globulin Ratio 1.5 (1.0-1.7) Lipase 355 U/L (73-393) Urine Collection Type Unknown Urine Color Yellow Urine Clarity Clear Urine pH 5.5 Urine Specific [place] 1.015 Urine Protein Negative mg/dL (NEG-TRACE) Urine Glucose (UA) Negative mg/dL (NEG) Urine Ketones (Stick) Negative mg/dL (NEG) Urine Blood Negative (NEG) Urine Nitrite Negative (NEG) Urine Bilirubin Negative (NEG) Urine Urobilinogen Dipstick 1.0 mg/dL (0.2 mg/dL) Urine Leukocyte Esterase Negative (NEG) Urine RBC 0 /HPF (0-2) Urine WBC 0 /HPF (0-4) Urine Bacteria 0 /HPF (0-FEW) Glucose (Fingerstick) 103 mg/dL (70-99) Test 11/08/18 11:15 Glucose (Fingerstick) 126 mg/dL (70-99) Laboratory Tests Test 11/07/18 19:22 11/07/18 22:25 11/08/18 07:37 11/08/18 10:50 White Blood Count 7.1 x10^3/uL (4.0-11.0) Red Blood Count 4.36 x10^6/uL (4.30-5.70) Hemoglobin 13.3 g/dL (13.0-17.5) Hematocrit 37.9 % (39.0-53.0) Mean Corpuscular Volume 87 fL (79-100) Mean Corpuscular Hemoglobin 31 pg (25-35) Mean Corpuscular Hemoglobin Concent 35 g/dL (31-37) Red Cell Distribution Width 13.5 % (11.5-14.5) Platelet Count 204 x10^3/uL (140-400) Neutrophils (%) (Auto) 59 % (31-73) Lymphocytes (%) (Auto) 27 % (24-48) Monocytes (%) (Auto) 12 % (0-9) Eosinophils (%) (Auto) 3 % (0-3) Basophils (%) (Auto) 1 % (0-3) Neutrophils # (Auto) 4.2 x10^3uL (1.8-7.7) Lymphocytes # (Auto) 1.9 x10^3/uL (1.0-4.8) Monocytes # (Auto) 0.8 x10^3/uL (0.0-1.1) Eosinophils # (Auto) 0.2 x10^3/uL (0.0-0.7) Basophils # (Auto) 0.1 x10^3/uL (0.0-0.2) Sodium Level 144 mmol/L (136-145) 143 mmol/L (136-145) Potassium Level 3.5 mmol/L (3.5-5.1) 3.4 mmol/L (3.5-5.1) Chloride Level 104 mmol/L (98-107) 106 mmol/L (98-107) Carbon Dioxide Level 27 mmol/L (21-32) 27 mmol/L (21-32) Anion Gap 13 (6-14) 10 (6-14) Blood Urea Nitrogen 47 mg/dL (8-26) 34 mg/dL (8-26) Creatinine 2.5 mg/dL (0.7-1.3) 1.7 mg/dL (0.7-1.3) Estimated GFR (Cockcroft-Gault) 27.5 42.9 BUN/Creatinine Ratio 19 (6-20) Glucose Level 118 mg/dL (70-99) 150 mg/dL (70-99) Calcium Level 9.5 mg/dL (8.5-10.1) 8.9 mg/dL (8.5-10.1) Total Bilirubin 1.1 mg/dL (0.2-1.0) Aspartate Amino Transf (AST/SGOT) 23 U/L (15-37) Alanine Aminotransferase (ALT/SGPT) 28 U/L (16-63) Alkaline Phosphatase 94 U/L (46-116) Troponin I Quantitative < 0.017 ng/mL (0.000-0.055) EE-Jjh-I-Type Natriuretic Peptide 124 pg/mL (0-124) Total Protein 7.6 g/dL (6.4-8.2) Albumin 4.5 g/dL (3.4-5.0) Albumin/Globulin Ratio 1.5 (1.0-1.7) Lipase 355 U/L (73-393) Urine Collection Type Unknown Urine Color Yellow Urine Clarity Clear Urine pH 5.5 Urine Specific [place] 1.015 Urine Protein Negative mg/dL (NEG-TRACE) Urine Glucose (UA) Negative mg/dL (NEG) Urine Ketones (Stick) Negative mg/dL (NEG) Urine Blood Negative (NEG) Urine Nitrite Negative (NEG) Urine Bilirubin Negative (NEG) Urine Urobilinogen Dipstick 1.0 mg/dL (0.2 mg/dL) Urine Leukocyte Esterase Negative (NEG) Urine RBC 0 /HPF (0-2) Urine WBC 0 /HPF (0-4) Urine Bacteria 0 /HPF (0-FEW) Glucose (Fingerstick) 103 mg/dL (70-99) Test 11/08/18 11:15 Glucose (Fingerstick) 126 mg/dL (70-99) Assessment/Plan Assessment/Plan IMP СВЕТЛАНА DEHYDRATION HYPOKALEMIA WT LOSS EARLY SATIETY OBESITY AFIB DM II HTN HX PLAN REPLACE K CONT WITH DIURETICS RENAL SONOGRAM UA WITH MICOR WILL FOLLOW KRISTIN KRAUS MD Nov 08, 2018 13:11
[2018-11-08] MEDS ORDERED: POTASSIUM CHLORIDE 20 MEQ TABLET.ER. PO ONE (13:15)
[2018-11-08 15:30] VITALS: BP 90/69
--- NOTE | 2018-11-08 17:27 | RAD ---
Renal ultrasound 11/08/2018 CLINICAL HISTORY: Renal failure. TECHNIQUE: A real-time ultrasound examination of both kidneys and the urinary bladder was performed. Multiple images were obtained. FINDINGS: The study is limited to some degree due to the patient's large body habitus. Both kidneys are mildly enlarged. The right kidney measures 14.1 cm in length. The left kidney measures 14.0 cm in length. 2 cysts are seen involving the right kidney which measure 3.6 and 15.9 cm in size. A 3.4 cm slightly complex cyst is seen involving the lower pole left kidney. The echogenicity of the cortex of both kidneys is within normal limits. There is no evidence of hydronephrosis. Incidental note is made of echogenic gallstones within the gallbladder. The urinary bladder is distended with urine. No abnormality is seen. IMPRESSION: 1. There is no sonographic evidence of hydronephrosis. 2. Cholelithiasis. Electronically signed by: Herb Canada MD (11/08/2018 5:24 PM) [id number]
[2018-11-08 19:35] VITALS: BP 140/77
[2018-11-08] MEDS ORDERED: INSU200I4 SQ (20:23)
[2018-11-08] MEDS ORDERED: ATORVASTATIN CALCIUM 40 MG TABLET. PO SCH (21:00)
[2018-11-08] MEDS ORDERED: INSULIN DEGLUDEC SQ SCH (21:00)
[2018-11-08] MEDS ORDERED: INSULIN GLARGINE 300 UNITS/3 ML INSULN.PEN. SQ SCH (21:00)
[2018-11-08 23:40] VITALS: BP 117/58
[2018-11-09 02:06] LABS: HEMOGLOBIN A1C 5.9 % (4.8-5.6)
[2018-11-09 03:30] VITALS: BP 134/83
[2018-11-09 05:07] LABS: ALBUMIN 3.7 g/dL (3.4-5.0); CALCIUM 9.1 mg/dL (8.5-10.1); CREATININE 1.7 mg/dL (0.7-1.3); GFR 42.9; PHOSPHORUS 3.3 mg/dL (2.6-4.7); POTASSIUM 3.7 mmol/L (3.5-5.1)
[2018-11-09 07:15] VITALS: BP 121/70
[2018-11-09] MEDS: INSULIN LISPRO 300 UNITS/3 ML INSULN.PEN. SQ SCH (08:00)
[2018-11-09] MEDS ORDERED: MAGNESIUM SULFATE 1GM 100 ML IV ONE (09:00)
[2018-11-09] MEDS: amLODIPine BESYLATE 10 MG TABLET PO SCH (09:17)
[2018-11-09] MEDS: PANTOPRAZOLE 40 MG TABLET.DR. PO SCH (09:17)
[2018-11-09] MEDS: ASPIRIN CHEWABLE 81 MG TABLET. PO SCH (09:17)
[2018-11-09] MEDS: CETIRIZINE HCL 10 MG TABLET. PO SCH (09:17)
[2018-11-09] MEDS: SOTALOL 80 MG TABLET. PO SCH (09:18)
[2018-11-09 11:00] VITALS: BP 151/71
--- NOTE | 2018-11-09 11:59 | PDOC ---
Renal-Progress Notes Subjective Notes Notes FEELS WELL History of Present Illness Hx of present illness BETTER Vitals Vitals Vital Signs Date Time Temp Pulse Resp B/P (MAP) Pulse Ox O2 Delivery O2 Flow Rate FiO2 11/09/18 09:18 73 121/70 11/09/18 07:15 97.8 20 97 Room Air 97.8 Weight Weight [ ] I.O. Intake and Output Intake and Output 11/09/18 07:00 Intake Total 750 ml Output Total 400 ml Balance 350 ml Intake Oral 750 ml Output Urine Total 400 ml Labs Labs Laboratory Tests Test 11/08/18 17:04 11/08/18 20:34 11/09/18 04:05 11/09/18 07:28 Glucose (Fingerstick) 114 mg/dL (70-99) 135 mg/dL (70-99) 104 mg/dL (70-99) Sodium Level 146 mmol/L (136-145) Potassium Level 3.7 mmol/L (3.5-5.1) Chloride Level 108 mmol/L (98-107) Carbon Dioxide Level 28 mmol/L (21-32) Anion Gap 10 (6-14) Blood Urea Nitrogen 29 mg/dL (8-26) Creatinine 1.7 mg/dL (0.7-1.3) Estimated GFR (Cockcroft-Gault) 42.9 Glucose Level 128 mg/dL (70-99) Calcium Level 9.1 mg/dL (8.5-10.1) Phosphorus Level 3.3 mg/dL (2.6-4.7) Magnesium Level 1.5 mg/dL (1.8-2.4) Albumin 3.7 g/dL (3.4-5.0) Review of Systems Constitutional: yes: alert, oriented Ears/Nose/Throat: Yes: no symptom reported Eyes: Yes: no symptom reported Pulmonary: Yes no symptom reported Cardiovascular: Yes no symptom reported Gastrointestional: Yes: no symptom reported Genitourinary: Yes: no symptom reported Musculoskeletal: Yes: no symptom reported Skin: Yes no symptom reported Psychiatric/Neurological: Yes: no symptom reported Physical Exam General Appearance: no apparent distress Skin: warm Respiratory: bilateral CTA Heart: S1S2 Abdomen: soft, bowel sounds present Genitourinary: bladder flat Extremities: pulses present Neurology: alert, oriented Assessment Assessment IMP СВЕТЛАНА-RESOLVING DEHYDRATION HYPOKALEMIA-RESOLVED WT LOSS EARLY SATIETY OBESITY AFIB DM II HTN HX BILATERAL RENAL CYSTS-SLIGHT COMPLEXITY TO LEFT CYST-CAN BE FOLLOWED WITH SONO IN ONE YEAR PLAN NOW EATING BETTER AND FEELING BETTER OK TO D/C FROM RENAL STANDPOINT PT TO F/U IN ONE TO TWO MONTHS ENC PO FLUIDS ASKED PT TO AVOID HIGH PROTEIN DIET TILL СВЕТЛАНА RESOLVED UPDATED PT AND KRISTIN KRAUS MD Nov 09, 2018 11:59
[2018-11-09] MEDS ORDERED: AMLO10TA8 PO (12:28)
[2018-11-09] MEDS ORDERED: SOTA80TA20 PO (12:28)
[2018-11-09] MEDS ORDERED: ATOR40TA59 PO (12:28)
[2018-11-09] MEDS ORDERED: Pantoprazole PO (12:28)
[2018-11-09] MEDS ORDERED: ASPI-630 PO (12:28)
--- NOTE | 2018-11-09 12:33 | PDOC3 ---
Discharge Summary Visit Information Date of Admission: Nov 07, 2018 Date of Discharge: Nov 09, 2018 Admitting Diagnosis Comment: СВЕТЛАНА with CK D stage III to 4 POA Obesity, BMI 42 Bloatedness Fatigability Hypertension, diabetes rather controlled with A1c 6.6 A. fib/bigemimny, trigeminy-plan for ablation sometime next week Brief Hospital Course Allergies Allergies Coded Allergies Type Severity Reaction Last Updated Verified amoxicillin Allergy Intermediate Rash 11/07/18 No Vital Signs Vital Signs Date Time Temp Pulse Resp B/P (MAP) Pulse Ox O2 Delivery O2 Flow Rate FiO2 11/09/18 11:00 97.6 66 20 151/71 (97) 99 Room Air 97.6 Lab Results Laboratory Tests Test 11/07/18 19:22 11/07/18 22:25 11/08/18 07:37 11/08/18 10:50 White Blood Count 7.1 x10^3/uL (4.0-11.0) Red Blood Count 4.36 x10^6/uL (4.30-5.70) Hemoglobin 13.3 g/dL (13.0-17.5) Hematocrit 37.9 % (39.0-53.0) Mean Corpuscular Volume 87 fL (79-100) Mean Corpuscular Hemoglobin 31 pg (25-35) Mean Corpuscular Hemoglobin Concent 35 g/dL (31-37) Red Cell Distribution Width 13.5 % (11.5-14.5) Platelet Count 204 x10^3/uL (140-400) Neutrophils (%) (Auto) 59 % (31-73) Lymphocytes (%) (Auto) 27 % (24-48) Monocytes (%) (Auto) 12 % (0-9) Eosinophils (%) (Auto) 3 % (0-3) Basophils (%) (Auto) 1 % (0-3) Neutrophils # (Auto) 4.2 x10^3uL (1.8-7.7) Lymphocytes # (Auto) 1.9 x10^3/uL (1.0-4.8) Monocytes # (Auto) 0.8 x10^3/uL (0.0-1.1) Eosinophils # (Auto) 0.2 x10^3/uL (0.0-0.7) Basophils # (Auto) 0.1 x10^3/uL (0.0-0.2) Sodium Level 144 mmol/L (136-145) 143 mmol/L (136-145) Potassium Level 3.5 mmol/L (3.5-5.1) 3.4 mmol/L (3.5-5.1) Chloride Level 104 mmol/L (98-107) 106 mmol/L (98-107) Carbon Dioxide Level 27 mmol/L (21-32) 27 mmol/L (21-32) Anion Gap 13 (6-14) 10 (6-14) Blood Urea Nitrogen 47 mg/dL (8-26) 34 mg/dL (8-26) Creatinine 2.5 mg/dL (0.7-1.3) 1.7 mg/dL (0.7-1.3) Estimated GFR (Cockcroft-Gault) 27.5 42.9 BUN/Creatinine Ratio 19 (6-20) Glucose Level 118 mg/dL (70-99) 150 mg/dL (70-99) Hemoglobin A1c 5.9 % (4.8-5.6) Calcium Level 9.5 mg/dL (8.5-10.1) 8.9 mg/dL (8.5-10.1) Total Bilirubin 1.1 mg/dL (0.2-1.0) Aspartate Amino Transf (AST/SGOT) 23 U/L (15-37) Alanine Aminotransferase (ALT/SGPT) 28 U/L (16-63) Alkaline Phosphatase 94 U/L (46-116) Troponin I Quantitative < 0.017 ng/mL (0.000-0.055) OK-Iln-W-Type Natriuretic Peptide 124 pg/mL (0-124) Total Protein 7.6 g/dL (6.4-8.2) Albumin 4.5 g/dL (3.4-5.0) Albumin/Globulin Ratio 1.5 (1.0-1.7) Lipase 355 U/L (73-393) Urine Collection Type Unknown Urine Color Yellow Urine Clarity Clear Urine pH 5.5 Urine Specific [place] 1.015 Urine Protein Negative mg/dL (NEG-TRACE) Urine Glucose (UA) Negative mg/dL (NEG) Urine Ketones (Stick) Negative mg/dL (NEG) Urine Blood Negative (NEG) Urine Nitrite Negative (NEG) Urine Bilirubin Negative (NEG) Urine Urobilinogen Dipstick 1.0 mg/dL (0.2 mg/dL) Urine Leukocyte Esterase Negative (NEG) Urine RBC 0 /HPF (0-2) Urine WBC 0 /HPF (0-4) Urine Bacteria 0 /HPF (0-FEW) Glucose (Fingerstick) 103 mg/dL (70-99) Test 11/08/18 11:15 11/08/18 17:04 11/08/18 20:34 11/09/18 04:05 Glucose (Fingerstick) 126 mg/dL (70-99) 114 mg/dL (70-99) 135 mg/dL (70-99) Sodium Level 146 mmol/L (136-145) Potassium Level 3.7 mmol/L (3.5-5.1) Chloride Level 108 mmol/L (98-107) Carbon Dioxide Level 28 mmol/L (21-32) Anion Gap 10 (6-14) Blood Urea Nitrogen 29 mg/dL (8-26) Creatinine 1.7 mg/dL (0.7-1.3) Estimated GFR (Cockcroft-Gault) 42.9 Glucose Level 128 mg/dL (70-99) Calcium Level 9.1 mg/dL (8.5-10.1) Phosphorus Level 3.3 mg/dL (2.6-4.7) Magnesium Level 1.5 mg/dL (1.8-2.4) Albumin 3.7 g/dL (3.4-5.0) Test 11/09/18 07:28 11/09/18 11:48 Glucose (Fingerstick) 104 mg/dL (70-99) 149 mg/dL (70-99) Laboratory Tests Test 11/08/18 17:04 11/08/18 20:34 11/09/18 04:05 11/09/18 07:28 Glucose (Fingerstick) 114 mg/dL (70-99) 135 mg/dL (70-99) 104 mg/dL (70-99) Sodium Level 146 mmol/L (136-145) Potassium Level 3.7 mmol/L (3.5-5.1) Chloride Level 108 mmol/L (98-107) Carbon Dioxide Level 28 mmol/L (21-32) Anion Gap 10 (6-14) Blood Urea Nitrogen 29 mg/dL (8-26) Creatinine 1.7 mg/dL (0.7-1.3) Estimated GFR (Cockcroft-Gault) 42.9 Glucose Level 128 mg/dL (70-99) Calcium Level 9.1 mg/dL (8.5-10.1) Phosphorus Level 3.3 mg/dL (2.6-4.7) Magnesium Level 1.5 mg/dL (1.8-2.4) Albumin 3.7 g/dL (3.4-5.0) Test 11/09/18 11:48 Glucose (Fingerstick) 149 mg/dL (70-99) Brief Hospital Course Mr. Resendiz is a 48 old white male who was sent in by renal service because of abnormal creatinine 3 at the office Patient was being worked up by cardiology for bigeminy, trigeminy, A. fib and planned for ablation sometime next week when the labs were drawn. 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 Creatinine went as high as 4 as OP. came down nicely to 1.7 on discharge. He's feeling better. Heavy discharge instructions education. I did wrote prescription for repeat BMP 2 weeks and to follow-up with Dr. Deluna 2-4 weeks time with repeat BMP His new medications include Norvasc Medications 10 mg once a day sotalol twice a day aspirin 81 and statin. He will stop his Maxzide metformin and losartan given creatinine Significant time in the room alone 32 minutes cumulative educating pt and family Consults: renal Proc; none, just IVF Discharge Information Condition at Discharge: Improved, Stable Follow Up: Weeks (Lenin 2-4 weeks, cards as prec instructed) Disposition/Orders: D/C to Home Scheduled Amlodipine Besylate (Amlodipine Besylate) 10 Mg Tablet, 10 MG PO DAILY for htn MDD 1, #60 Prescribed by: JCARLOS FALL on 11/09/18 1228 Aspirin (Aspirin) 81 Mg Tab.chew, 81 MG PO DAILYWBKFT for prevention MDD 1, #30 Prescribed by: JCARLOS FALL on 11/09/18 1228 Atorvastatin Calcium (Atorvastatin Calcium) 40 Mg Tablet, 40 MG PO QHS for lipids MDD 1, #60 Prescribed by: JCARLOS FALL on 11/09/18 1228 Insulin Degludec (Tresiba Flextouch U-200) 200 Unit/1 Ml Insuln.pen, 150 UNITS SQ QHS for GLUCOSE MANAGEMENT, (Reported) INJECT 140UNITS UNDER SKIN DAILY ADJUST TO REACH AM FASTING TARGET OF 80-130 EVERY 5 DAYS Entered as Reported by: ALON LOPEZ on 11/08/182022 Last Action: Converted on 11/08/182023 by ALON LOPEZ Sotalol Hcl (Betapace) 80 Mg Tablet, 120 MG PO DAILY for arrhythmia MDD 1, #60 Prescribed by: JCARLOS FALL on 11/09/18 1228 [Pantoprazole] 40 MG TABLET., 40 MG PO DAILYAC for gerd MDD 1, #30 Prescribed by: JCARLOS FALL on 11/09/18 1228 JCARLOS FALL MD Nov 09, 2018 12:33
--- NOTE | 2018-11-09 15:03 | NUR ---
pt was discharged home with self-care. instructed to have BMP tested in 2 weeks, stop certain meds and given 5 scripts for new meds. He was also asked to followup with Dr Deluna in 2-4 weeks. Naina walked pt out to the main entrance to be taken home by his spouse. Nathan Seay RN
--- NOTE | 2018-11-10 06:28 | EKG ---
[facility] [address] [place] [address] Test Date: 2018-11-07 Test Time: 20:09:49 Pat Name: MARÍA STINSON Department: Room: Gender: M [employer]: : 1970 Requested By: YEMI AMADOR Order Number: [id number] Reading MD: Measurements Intervals [place] Rate: 74 P: 33 DC: 186 QRS: -13 QRSD: 106 T: 29 QT: 422 QTc: 474 Interpretive Statements SINUS RHYTHM VENTRICULAR PREMATURE COMPLEX(ES), TRIGEMINY LEFTWARD AXIS ABNORMAL ECG RI6.01 No previous ECG available for comparison
== END 2018-11-09 15:07 | disposition home or self-care (01) | DRG 683 ==
LOC: ER 19:00 → 6 SOUTH 21:06
PROVIDERS: ADMIT Internal Medicine; ATTEND Internal Medicine
DX: N17.9 Acute kidney failure, unspecified (principal); Z68.41 Body mass index [BMI] 40.0-44.9, adult; E86.0 Dehydration; N18.4 Chronic kidney disease, stage 4 (severe); E66.9 Obesity, unspecified; E87.6 Hypokalemia; I48.91 Unspecified atrial fibrillation; K21.9 Gastro-esophageal reflux disease without esophagitis; N28.1 Cyst of kidney, acquired; I12.9 Hypertensive chronic kidney disease with stage 1 through stage 4 chronic kidney disease, or unspecified chronic kidney disease; E11.22 Type 2 diabetes mellitus with diabetic chronic kidney disease; Z82.49 Family history of ischemic heart disease and other diseases of the circulatory system; Z83.3 Family history of diabetes mellitus; Z88.1 Allergy status to other antibiotic agents
CPT/HCPCS: 36415; 71046; 76770; 80048; 80053; 80069; 81001; 82962; 83036; 83690; 83735; 83880; 84484; 85025; 93005; 96360; 96361; 96372; J1815; J3475; J7030; 99285-25

== ENCOUNTER → 2019-11-03 | Outpatient (CLI) | payer BC ==
--- NOTE | 2019-11-03 16:18 | CARD ---
MR#: [id number] Date of Study: 11/03/2019 Ordering Physician: ARACELI STERN, Referring Physician: ARACELI STERN, Tech: Sandra Glover [facility] APPROVED REPORT EXAM: Two-dimensional and M-mode echocardiogram with Doppler and color Doppler. Other Information Quality : Good INDICATION Palpitations Premature Ventricular Contractions RISK FACTORS Diabetes 2D DIMENSIONS RVDd3.1 (2.9-3.5cm)Left Atrium(2D)3.6 (1.6-4.0cm) IVSd1.2 (0.7-1.1cm)Aortic Root(2D)3.3 (2.0-3.7cm) LVDd5.5 (3.9-5.9cm)LVOT Diameter2.2 (1.8-2.4cm) PWd1.2 (0.7-1.1cm)LVDs3.7 (2.5-4.0cm) FS (%) 33.7 %SV93.1 ml LVEF(%)62.0 (>50%) Aortic Valve AoV Peak Zan.145.3cm/sAoV VTI23.6cm AO Peak GR.8.4mmHgLVOT Peak Zan.120.9cm/s AO Mean GR.5mmHgAVA (VMAX)3.24cm2 JOHN (VTI)4.10cm2 Mitral Valve MV E Uixevlqg37.9cm/sMV DECEL [id number] MV A Gicuyvnw85.4cm/sE/A Ratio1.3 Pulmonary Vein S1 Mpcsmotj26.0cm/sD2 Blqnigqq33.4cm/s LEFT VENTRICLE The left ventricle is normal size. There is mild concentric left ventricular hypertrophy. The left ve ntricular systolic function is normal and the ejection fraction is within normal range. The Ejection Fraction is 55-60%. There is normal LV segmental wall motion. Transmitral Doppler flow pattern is Gra de I-abnormal relaxation pattern. RIGHT VENTRICLE The right ventricle is normal size. The right ventricular systolic function is normal. ATRIA The left atrium size is normal. The right atrium size is normal. The interatrial septum is intact wit h no evidence for an atrial septal defect or patent foramen ovale as noted on 2-D or Doppler imaging. AORTIC VALVE The aortic valve is calcified but opens well. Doppler and Color Flow revealed no significant aortic r egurgitation. There is no significant aortic valvular stenosis. MITRAL VALVE The mitral valve is calcified but opens well. There is no evidence of mitral valve prolapse. There is no mitral valve stenosis. Doppler and Color Flow revealed no mitral valve regurgitation noted. TRICUSPID VALVE The tricuspid valve is normal in structure and function. Doppler and Color Flow revealed no tricuspid valve regurgitation noted. There is no tricuspid valve stenosis. PULMONIC VALVE The pulmonic valve is not well visualized. Doppler and Color Flow revealed no pulmonic valvular regur gitation. There is no pulmonic valvular stenosis. GREAT VESSELS The aortic root is normal in size. The ascending aorta is mildly dilated at 3.6 cm. The IVC is normal in size and collapses >50% with inspiration. PERICARDIAL EFFUSION There is no evidence of significant pericardial effusion. Critical Notification Critical Value: No <Conclusion> The left ventricular systolic function is normal and the ejection fraction is within normal range. Th e Ejection Fraction is 55-60%. There is normal LV segmental wall motion. The ascending aorta is mildly dilated at 3.6 cm. Signed by : Araceli Stern, Electronically Approved : 11/03/2019 16:18:33
== END | disposition home or self-care (01) ==
LOC: ECHO 13:29
PROVIDERS: ATTEND Internal Medicine Cardiovascular Disease
DX: I08.0 Rheumatic disorders of both mitral and aortic valves (principal); I49.3 Ventricular premature depolarization
CPT/HCPCS: 93306